=== PATIENT | male | born 1965 | race Caucasian/White ===

== ENCOUNTER 2018-07-03 16:10 | Emergency (ER) | payer MEDICARE, OTHER ==
[~2018-07-03] VITALS: Ht 160 cm; Wt 83.4 kg
[~2018-07-03 16:10] MED LIST: MOTRIN600 MG PO; VALIUM2 MG PO
[2018-07-03] MEDS ORDERED: KEFLEX500 MG PO (17:38)
[2018-07-03 17:45] VITALS: BP 149/93
== END 2018-07-03 17:45 | disposition home or self-care (01) ==
LOC: EME 16:10
DX: S71.132A Puncture wound without foreign body, left thigh, initial encounter (principal); W26.8XXA Contact with other sharp object(s), not elsewhere classified, initial encounter; W17.89XA Other fall from one level to another, initial encounter; Y92.812 Truck as the place of occurrence of the external cause
CPT/HCPCS: 73552; 99281; 99284